=== PATIENT | male | born 1970 | race Caucasian/White ===

== ENCOUNTER 2018-11-20 22:34 | Emergency (ER) | payer BC ==
[2018-11-20] MEDS ORDERED: Lidocaine 2% Viscous Solution 15 ML Cup PO ONE (22:59)
[2018-11-20] MEDS ORDERED: Benzocaine 20% Topical Spray UD MUCMEM ONE (22:59)
--- NOTE | 2018-11-20 23:05 | EDM.PDOC ---
ED HPI GENERAL MEDICAL PROBLEM - General Chief Complaint: General Stated Complaint: PAIN ON RIGHT SIDE OF JAW Time Seen by Provider: 11/20/18 22:38 Source of Information: Reports: Patient History Limitations: Reports: No Limitations - History of Present Illness INITIAL COMMENTS - FREE TEXT/NARRATIVE: HISTORY AND PHYSICAL: History of present illness: Patient is a 48-year-old male who presents to the ED today for concern of upper and lower gum line pain 1 day. Patient states the symptoms started this afternoon and this evening he feels like there is a throbbing sensation in his gums. Patient states he has bad teeth and has had to have several teeth pulled in the past. Patient states he took ibuprofen with mild relief of symptoms. Patient denies any swelling or difficulties eating. Patient denies any other symptoms or concerns. Patient denies fever, chills, chest pain, shortness of breath, or cough. Denies headache, neck stiff ness, change in vision, syncope, or near syncope. Denies nausea, vomiting, abdominal pain, diarrhea, constipation, or dysuria. Has not noted any blood in urine or stool. Patient has been eating and drinking appropriately. Review of systems: As per history of present illness and below otherwise all systems reviewed and negative. Past medical history: As per history of present illness and as reviewed below otherwise noncontributory. Surgical history: As per history of present illness and as reviewed below otherwise noncontributory. Social history: See social history for further information Family history: As per history of present illness and as reviewed below otherwise noncontributory. Physical exam: General: Patient is alert, oriented, and in no acute distress. Patient sitting comfortably on exam table. HEENT: Atraumatic, normocephalic, pupils equal and reactive bilaterally, negative for conjunctival pallor or scleral icterus, mucous membranes moist, TMs normal bilaterally, throat clear, neck supple, nontender, trachea midline. No drooling or trismus noted. No meningeal signs. No hot potato voice noted. The gumline adjacent to tooth #2 is moderately edematous and erythematous with pain / recreation of patients symptoms with palpation. Generalized poor dentition. Lungs: Clear to auscultation, breath sounds equal bilaterally, chest nontender. Heart: S1S2, regular rate and rhythm without overt murmur Abdomen: Soft, nondistended, nontender. Negative for masses or hepatosplenomegaly. Negative for costovertebral tenderness. Pelvis: Stable nontender. Genitourinary: Deferred. Rectal: Deferred. Skin: Intact, warm, dry. No lesions or rashes noted. Extremities: Atraumatic, negative for cords or calf pain. Neurovascular unremarkable. Neuro: Awake, alert, oriented. Cranial nerves II through XII unremarkable. Cerebellum unremarkable. Motor and sensory unremarkable throughout. Exam nonfocal. Notes: Discussed the importance for follow-up with the dentist. Voices understanding and is agreeable to plan of care. Denies any further questions or concerns at this time. Diagnostics: None Therapeutics: Dental balls Prescription: Augmentin Impression: Gingivitis Poor dentition Plan: 1. Please take medication as prescribed. 2. Tylenol and/or ibuprofen as directed and as needed for pain management. 3. "Tooth Balls" have been given to you; apply along the gumline every 2-3 hours as needed. Do not swallow these; external use only. 4. Follow-up with a dentist for definitive care. Return to the ED as needed and as discussed. Definitive disposition and diagnosis as appropriate pending reevaluation and review of above. Right Oral/Mouth Pain Score (Numeric/FACES): 5 - Related Data Allergies Allergy/AdvReac Type Severity Reaction Status Date / Time No Known Allergies Allergy Verified 11/20/18 22:39 Home Meds: Home Meds Ibuprofen 800 mg PO ASDIRECTED 11/20/18 [History] Lisinopril 30 mg PO DAILY 11/20/18 [History] Rosuvastatin [Crestor] 10 mg PO DAILY 11/20/18 [History] Past Medical History Cardiovascular History: Reports: Prior Cardiac Arrest - Infectious Disease History Infectious Disease History: Reports: Chicken Pox, Mumps - Past Surgical History GI Surgical History: Reports: Appendectomy Musculoskeletal Surgical History: Reports: Other (See Below) Other Musculoskeletal Surgeries/Procedures:: left femur Social & Family History - Family History Family Medical History: Noncontributory - Tobacco Use Smoking Status *Q: Heavy Tobacco Smoker Years of Tobacco use: 40 Packs/Tins Daily: 0.5 - Caffeine Use Caffeine Use: Reports: Soda, Tea - Recreational Drug Use Recreational Drug Use: No ED ROS GENERAL - Review of Systems Review Of Systems: ROS reveals no pertinent complaints other than HPI. ED EXAM, GENERAL - Physical Exam Exam: See Below (See dictation) Course - Vital Signs Last Recorded V/S: Last Vital Signs Temp 96.9 F 11/20/18 22:41 Pulse 80 11/20/18 22:41 Resp 18 11/20/18 22:41 BP 138/85 11/20/18 22:41 Pulse Ox 90 L 11/20/18 22:41 - Orders/Labs/Meds Meds: Medications Discontinued Medications Generic Name Dose Route Start Last Admin Trade Name Chen PRN Reason Stop Dose Admin Benzocaine 2 each 11/20/18 22:59 Hurricaine One 20% MUCMEM 11/20/18 23:00 ONETIME ONE Lidocaine HCl 15 ml 11/20/18 22:59 Xylocaine 2% Viscous PO 11/20/18 23:00 ONETIME ONE Departure - Departure Time of Disposition: 23:04 Disposition: Home, Self-Care 01 Clinical Impression: Gingivitis, acute, Poor dentition - Discharge Information Referrals: PCP,None [Primary Care Provider] - Additional Instructions: The following information is given to patients seen in the emergency department who are being discharged to home. This information is to outline your options for follow-up care. We provide all patients seen in our emergency department with a follow-up referral. The need for follow-up, as well as the timing and circumstances, are variable depending upon the specifics of your emergency department visit. If you don't have a primary care physician on staff, we will provide you with a referral. We always advise you to contact your personal physician following an emergency department visit to inform them of the circumstance of the visit and for follow-up with them and/or the need for any referrals to a consulting specialist. The emergency department will also refer you to a specialist when appropriate. This referral assures that you have the opportunity for follow-up care with a specialist. All of these measure are taken in an effort to provide you with optimal care, which includes your follow-up. Under all circumstances we always encourage you to contact your private physician who remains a resource for coordinating your care. When calling for follow-up care, please make the office aware that this follow-up is from your recent emergency room visit. If for any reason you are refused follow-up, please contact the [facility] Emergency Department at and asked to speak to the emergency department charge nurse. [facility] [address] [place] [address] [facility] [address] [place] [address] 1. Please take medication as prescribed. 2. Tylenol and/or ibuprofen as directed and as needed for pain management. 3. "Tooth Balls" have been given to you; apply along the gumline every 2-3 hours as needed. Do not swallow these; external use only. 4. Follow-up with a dentist for definitive care. Return to the ED as needed and as discussed.
== END 2018-11-20 23:25 | disposition home or self-care (01) ==
LOC: MW.ED 22:34
DX: K05.00 Acute gingivitis, plaque induced (principal); F17.210 Nicotine dependence, cigarettes, uncomplicated
CPT/HCPCS: 99283; A9270

== ENCOUNTER 2019-08-02 17:07 | Emergency (ER) | payer BC ==
[2019-08-02] MEDS ORDERED: Lidocaine 2% Viscous Solution 15 ML Cup PO ONE (17:12)
[2019-08-02] MEDS ORDERED: Benzocaine 20% Topical Spray UD MUCMEM ONE (17:12)
--- NOTE | 2019-08-02 17:12 | EDM.PDOC ---
ED HPI GENERAL MEDICAL PROBLEM - General Chief Complaint: ENT Problem Stated Complaint: TOOTH ACHE Time Seen by Provider: 08/02/19 17:09 Source of Information: Reports: Patient History Limitations: Reports: No Limitations - History of Present Illness INITIAL COMMENTS - FREE TEXT/NARRATIVE: HISTORY AND PHYSICAL: History of present illness: Patient is a 49-year-old male who presents to the emergency room with complaints of right upper posterior dental pain and swelling. He states he has been having some intermittent dental problem over the past 1 year. States he attempted to make an appointment with the dentist but is not able to be seen for 2 to 3 weeks. He has been taking Tylenol and ibuprofen without much relief. Last year he was seen in the emergency department for similar problem and states "they gave me amoxicillin and it improved within 24 hours". Patient denies any fever, chills, headache, change in vision, syncope or near syncope. Denies any chest pain, back pain, shortness of breath or cough. Denies any GI or symptoms. Patient has been eating and drinking appropriately. Review of systems: As per history of present illness and below otherwise all systems reviewed and negative. Past medical history: As per history of present illness and as reviewed below otherwise noncontributory. Surgical history: As per history of present illness and as reviewed below otherwise noncontributory. Social history: See social history for further information Family history: As per history of present illness and as reviewed below otherwise noncontribut ory. Physical exam: General: Well-developed and well-nourished 49-year-old male. Alert and oriented. Nontoxic-appearing and in no acute distress. HEENT: Atraumatic, normocephalic, pupils equal and reactive bilaterally, negative for conjunctival pallor or scleral icterus, mucous membranes moist, TMs normal bilaterally, throat clear, multiple dental caries are noted, he does have some redness/fullness and tenderness to the right upper posterior molar. Neck supple, nontender, trachea midline. No drooling or trismus noted. No meningeal signs. No hot potato voice noted. Lungs: Clear to auscultation, breath sounds equal bilaterally, chest nontender. Heart: S1S2, regular rate and rhythm without overt murmur Abdomen: Soft, nondistended, nontender. Negative for masses or hepatosplenomegaly. Negative for costovertebral tenderness. Pelvis: Stable nontender. Genitourinary: Deferred. Rectal: Deferred. Skin: Intact, warm, dry. No lesions or rashes noted. Extremities: Atraumatic, moves all extremities per self without difficulty or deficits, negative for cords or calf pain. Neurovascular unremarkable. Neuro: Awake, alert, oriented. Cranial nerves II through XII unremarkable. Cerebellum unremarkable. Motor and sensory unremarkable throughout. Exam nonfocal. Notes: The need for follow-up was discussed with patient. Medication and supportive care measures were reviewed and discussed. Voices understanding and is agreeable to plan of care. Denies any further questions or concerns at this time. Diagnostics: None Therapeutics: Dental balls Prescription: Augmentin, Tramadol (#15) Impression: Dental Abscess Plan: 1. Please take the antibiotic as prescribed. 2. Tylenol and/or ibuprofen as needed for pain management. "Tooth Balls" have been given to you; apply along the gumline every 2-3 hours as needed. Do not swallow these; external use only. 3. Follow-up with a dentist for definitive care. Return to the ED as needed and as discussed. Definitive disposition and diagnosis as appropriate pending reevaluation and review of above. dental Pain Score (Numeric/FACES): 6 - Related Data Allergies Allergy/AdvReac Type Severity Reaction Status Date / Time No Known Allergies Allergy Verified 08/02/19 17:15 Home Meds: Home Meds Ibuprofen 800 mg PO ASDIRECTED 11/20/18 [History] Lisinopril 30 mg PO DAILY 11/20/18 [History] Rosuvastatin [Crestor] 10 mg PO DAILY 11/20/18 [History] Amoxicillin/Clavulanate K [Augmentin 875-125 MG] 1 tab PO BID 10 Days #20 tablet 08/02/19 [Rx] traMADol [Ultram] 50 mg PO Q4H PRN #15 tab 08/02/19 [Rx] Past Medical History Cardiovascular History: Reports: Prior Cardiac Arrest - Infectious Disease History Infectious Disease History: Reports: Chicken Pox, Mumps - Past Surgical History GI Surgical History: Reports: Appendectomy Musculoskeletal Surgical History: Reports: Other (See Below) Other Musculoskeletal Surgeries/Procedures:: left femur Social & Family History - Family History Family Medical History: Noncontributory - Caffeine Use Caffeine Use: Reports: Soda, Tea ED ROS ENT - Review of Systems Review Of Systems: Comprehensive ROS is negative, except as noted in HPI. ED EXAM, ENT - Physical Exam Exam: See Below (See dictation) Course - Vital Signs Last Recorded V/S: Last Vital Signs Temp 97.5 F 08/02/19 17:15 Pulse 73 08/02/19 17:15 Resp 17 08/02/19 17:15 BP 134/88 08/02/19 17:15 Pulse Ox 93 L 08/02/19 17:15 - Orders/Labs/Meds Meds: Medications Discontinued Medications Generic Name Dose Route Start Last Admin Trade Name Freq PRN Reason Stop Dose Admin Benzocaine 2 each 08/02/19 17:12 08/02/19 17:24 Hurricaine One 20% MUCMEM 08/02/19 17:13 2 each ONETIME ONE Administration Lidocaine HCl 15 ml 08/02/19 17:12 08/02/19 17:24 Xylocaine 2% Viscous PO 08/02/19 17:13 15 ml ONETIME ONE Administration Departure - Departure Time of Disposition: 17:31 Disposition: Home, Self-Care 01 Clinical Impression: Dental abscess - Discharge Information Prescriptions: Amoxicillin/Clavulanate K [Augmentin 875-125 MG] 1 tab PO BID 10 Days #20 tablet traMADol [Ultram] 50 mg PO Q4H PRN #15 tab PRN Reason: Pain Instructions: Dental Abscess, [id number] Referrals: Eulalia CHILDERS [Primary Care Provider] - Forms: ED Department Discharge Additional Instructions: The following information is given to patients seen in the emergency department who are being discharged to home. This information is to outline your options for follow-up care. We provide all patients seen in our emergency department with a follow-up referral. The need for follow-up, as well as the timing and circumstances, are variable depending upon the specifics of your emergency department visit. If you don't have a primary care physician on staff, we will provide you with a referral. We always advise you to contact your personal physician following an emergency department visit to inform them of the circumstance of the visit and for follow-up with them and/or the need for any referrals to a consulting specialist. The emergency department will also refer you to a specialist when appropriate. This referral assures that you have the opportunity for follow-up care with a specialist. All of these measure are taken in an effort to provide you with optimal care, which includes your follow-up. Under all circumstances we always encourage you to contact your private physician who remains a resource for coordinating your care. When calling for follow-up care, please make the office aware that this follow-up is from your recent emergency room visit. If for any reason you are refused follow-up, please contact the [facility] Emergency Department at and asked to speak to the emergency department charge nurse. [facility] [address] [place] [id number] [facility] [address] [place] [id number] 1. Please take the antibiotic as prescribed. 2. Tylenol and/or ibuprofen as needed for pain management. "Tooth Balls" have been given to you; apply along the gumline every 2-3 hours as needed. Do not swallow these; external use only. 3. Follow-up with a dentist for definitive care. Return to the ED as needed and as discussed. Sepsis Event Note (ED) - Focused Exam Vital Signs: Vital Signs Temp Pulse Resp BP Pulse Ox 08/02/19 17:15 97.5 F 73 17 134/88 93 L
== END 2019-08-02 17:45 | disposition home or self-care (01) ==
LOC: MW.ED 17:07
DX: K04.7 Periapical abscess without sinus (principal); K02.9 Dental caries, unspecified; Z79.899 Other long term (current) drug therapy
CPT/HCPCS: 99282; A9270

== ENCOUNTER 2019-09-29 10:24 | Observation (INO) | payer BC ==
[2019-09-29] MEDS ORDERED: Sodium Chloride 0.9% 2.5 ML Syringe FLUSH PRN (10:26)
[2019-09-29] MEDS ORDERED: Sodium Chloride 0.9% 10 ML Syringe FLUSH PRN (10:26)
--- NOTE | 2019-09-29 10:33 | EDM.PDOC ---
ED HPI GENERAL MEDICAL PROBLEM - General Chief Complaint: Chest Pain Stated Complaint: SOB Time Seen by Provider: 09/29/19 10:25 Source of Information: Reports: Patient, Old Records History Limitations: Reports: No Limitations - History of Present Illness INITIAL COMMENTS - FREE TEXT/NARRATIVE: 49-year-old male with a past medical history of hypertension presenting with complaints of epigastric pressure and black stools. Patient states that approximately 5 nights ago, he began developing a sensation of pressure in the epigastrium radiating up into the substernal region. He states that it is difficult to breathe due to the sensation of pressure but he does not feel winded or breathless. He also developed black-colored solid stools around the same timeframe. He was concerned about persistent symptoms so he came to the ED. He denies any history of coronary artery disease, GI bleed, or pulmonary embolism. Denies any hematemesis, coffee-ground emesis, hematochezia, black tarry stools, lower extremity edema, weight gain, PND. 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 Patient denies history of venous thromboembolism, lower extremity pain or swelling, hemoptysis, recent surgery or immobilization or long travel, history of active malignancy, or hormonal medication/product usage. ROS: A 10-point review of systems was negative, except as noted in the HPI (or in the ROS section of this note). Past medical history: Reviewed, no additional pertinent history. Surgical history: Reviewed in system, no additional pertinent history. Social history: Reviewed in system, no additional pertinent history. Family history: Reviewed in system, no additional pertinent history. PHYSICAL EXAM Vital signs reviewed. Nursing notes reviewed. Constitutional: Awake, alert, non-distressed. Head: Normocephalic, atraumatic. Eyes: EOMI, conjunctiva normal, no discharge, no scleral icterus. Ears, Nose, Throat: External ears and nose normal, moist oral mucosa. Cardiovascular: 2+ radial pulses bilaterally, capillary refill less than 2 seconds. Pulmonary: normal work of breathing, no accessory muscle use. Abdomen/GI: Obese, soft, nontender, nondistended, no guarding or rigidity, no masses. : Normal external examination of the anus, guaiac testing negative, no gross blood. Musculoskeletal: No deformities. Integumentary: Appropriate color for ethnicity, warm, dry, no pallor or jaundice, no rash. Neurologic: Alert, answering questions appropriately, normal speech, no facial droop, moving all extremities well. ethylbenzene converter helper 2-12 intact, 5/5 strength to bilateral upper extremities, no pronator drift. Psychiatric: Appropriate mood and affect, normal thought process. epigastric Pain Score (Numeric/FACES): 5 - Related Data Allergies Allergy/AdvReac Type Severity Reaction Status Date / Time No Known Allergies Allergy Verified 09/29/19 10:27 Home Meds: Home Meds Lisinopril 30 mg PO DAILY 11/20/18 [History] Past Medical History Cardiovascular History: Reports: Prior Cardiac Arrest - Infectious Disease History Infectious Disease History: Reports: Chicken Pox, Mumps - Past Surgical History GI Surgical History: Reports: Appendectomy Musculoskeletal Surgical History: Reports: Other (See Below) Other Musculoskeletal Surgeries/Procedures:: left femur Social & Family History - Family History Family Medical History: Noncontributory - Caffeine Use Caffeine Use: Reports: Soda, Tea ED ROS GENERAL - Review of Systems Review Of Systems: See Below ED EXAM, GENERAL - Physical Exam Exam: See Below EKG INTERPRETATION EKG Interpretation Comments: 12-Lead ECG Interpretation Acquired: 10:28 AM Rhythm: Sinus rhythm Rate: 79 bpm [place]: Left axis deviation Intervals: Normal Ectopy: Incomplete right bundle branch block Ischemic Changes: None apparent RV Strain: No obvious RV strain pattern. ST Segments/T-Waves: Large appearing T waves in leads II, aVF (nondiagnostic). Course - Vital Signs Text/Narrative:: Patient hemodynamically stable, afebrile, well-appearing, looks nontoxic. Differential diagnosis includes but is not limited to: Peptic ulcer disease, gastric varices, malignancy, hemorrhoids, colitis, pancreatitis, acute hepatitis, biliary colic, gallstones, acute coronary syndrome, pulmonary embolism, congestive heart failure, esophageal rupture, pneumonia, gastritis, reflux, thoracic aortic dissection, and many others Initially hypertensive, blood pressure normalized on repeat vital sign checks. Mild resting hypoxia with room air saturations 90 to 94%. CBC shows normal cell lines. Normal INR and APTT. D-dimer is elevated 0.84. Troponin is negative. Lipase is within normal limits. Mild hypokalemia at 3.4. Bilirubin elevated at 2.7, AST 414, ALT 583. Twelve-lead EKG shows no acute ischemia. 11:23 AM: Given hypoxia with elevated d-dimer, will pursue CT pulmonary angiogram study. Patient's sensation of epigastric pressure somewhat improved after a GI cocktail. No blood note on LESLY. Guaiac negative. No evidence of a GI bleed. 12:45 PM: Pain improved after GI cocktail. Remains hypoxic while awake and requires nasal cannula oxygen. The radiology software is down so we are not able to review the CT images at this point, we are waiting for radiologist to review the images. 2:24 PM: CT pulmonary angiogram was suboptimal and the vasculature was not adequately opacified. The lung parenchyma looks normal. Hepatic steatosis was noted. Multiple gallstones were seen but no evidence of acute biliary inflammation or dilatation. The patient is persistently hypoxic and requiring nasal cannula oxygen to maintain normal oxygen saturations although he is not complaining of feeling breathless. His lungs are clear. Given ongoing hypoxia and need for supplemental oxygen, he will need to be admitted to the hospital on observation status. I did order a DVT ultrasound [place] which was negative. He will likely need an echocardiogram. I spoke with the accepting hospitalist Dr. Mendoza who agrees to admit to observation/telemetry status. HEART Score for Major Cardiac Events RESULT SUMMARY: 3 points Low Score (0-3 points) Risk of MACE of 0.9-1.7%. INPUTS: History > 0 = Slightly suspicious EKG > 0 = Normal Age > 1 = 45-64 Risk factors > 2 = ?3 risk factors or history of atherosclerotic disease Initial troponin > 0 = ?normal limit Wells' Criteria for Pulmonary Embolism RESULT SUMMARY: 3.0 points Moderate risk group: 16.2% chance of PE in an ED population. Another study assigned scores ? 4 as PE Unlikely and had a 3% incidence of PE. INPUTS: Clinical signs and symptoms of DVT > 0 = No PE is #1 diagnosis OR equally likely > 3 = Yes Heart rate > 100 > 0 = No Immobilization at least 3 days OR surgery in the previous 4 weeks > 0 = No Previous, objectively diagnosed PE or DVT > 0 = No Hemoptysis > 0 = No Malignancy w/ treatment within 6 months or palliative > 0 = No Last Recorded V/S: Last Vital Signs Temp 35.6 C L 09/29/19 10:27 Pulse 72 09/29/19 14:12 Resp 16 09/29/19 14:12 BP 126/78 09/29/19 14:12 Pulse Ox 93 L 09/29/19 14:12 - Orders/Labs/Meds Orders: Active Orders 24 hr Category Date Time Status Admission Status [Patient Status] [ADT] Stat ADT 09/29/19 14:30 Active Cardiac Monitoring [RC] . DIRECTED Care 09/29/19 10:26 Active EKG 12 Lead [EKG Documentation Completion] [RC] STAT Care 09/29/19 11:39 Active EKG Documentation Completion [RC] STAT Care 09/29/19 10:26 Active Pulse Oximetry [RC] ASDIRECTED Care 09/29/19 10:26 Active Abdomen Ltd [US] Urgent Exams 09/29/19 15:36 Ordered CORONAVIRUS COVID-19 RAPID [MOLEC] Stat Lab 09/29/19 14:55 Received GLYCOSYLATED HEMOGLOBIN,HGBA1C [CHEM] Stat Lab 09/29/19 15:50 Ordered LIPID PANEL [CHEM] Stat Lab 09/29/19 15:50 Ordered TROPONIN I [CHEM] Stat Lab 09/29/19 15:03 Received TSH [CHEM] Stat Lab 09/29/19 15:50 Ordered Sodium Chloride 0.9% [Saline Flush] Med 09/29/19 10:26 Active 10 ml FLUSH ASDIRECTED PRN Sodium Chloride 0.9% [Saline Flush] Med 09/29/19 10:26 Active 2.5 ml FLUSH ASDIRECTED PRN Saline Lock Insert [OM.PC] Stat Oth 09/29/19 10:26 Ordered Medication Orders Sodium Chloride (Saline Flush) 10 ml FLUSH ASDIRECTED PRN PRN Reason: Keep Vein Open Last Admin: 09/29/19 11:03 Dose: 10 ml Documented by: YAKELIN Sodium Chloride (Saline Flush) 2.5 ml FLUSH ASDIRECTED PRN PRN Reason: Keep Vein Open Last Admin: 09/29/19 11:03 Dose: 2.5 ml Documented by: YAKELIN Labs: Laboratory Tests 09/29/19 09/29/19 09/29/19 Range/Units 10:36 10:36 10:36 WBC 5.37 (4.0-11.0) K/uL RBC 5.11 (4.50-5.90) M/uL Hgb 15.7 (13.0-17.0) g/dL Hct 46.2 (38.0-50.0) % MCV 90.4 (80.0-98.0) fL MCH 30.7 (27.0-32.0) pg MCHC 34.0 (31.0-37.0) g/dL RDW Std Deviation 42.1 (28.0-62.0) fl RDW Coeff of Jaswinder 13 (11.0-15.0) % Plt Count 147 L (150-400) K/uL MPV 11.40 (7.40-12.00) fL Neut % (Auto) 70.0 (48.0-80.0) % Lymph % (Auto) 20.7 (16.0-40.0) % [place] % (Auto) 7.8 (0.0-15.0) % Eos % (Auto) 0.9 (0.0-7.0) % Baso % (Auto) 0.6 (0.0-1.5) % Neut # (Auto) 3.8 (1.4-5.7) K/uL Lymph # (Auto) 1.1 (0.6-2.4) K/uL [place] # (Auto) 0.4 (0.0-0.8) K/uL Eos # (Auto) 0.1 (0.0-0.7) K/uL Baso # (Auto) 0.0 (0.0-0.1) K/uL Nucleated RBC % 0.0 /100WBC Nucleated RBCs # 0 K/uL INR 1.03 APTT 24.9 (18.6-31.3) SEC D-Dimer, Quantitative (0.0-0.50) mg/L FEU Sodium 139 (136-148) mmol/L Potassium 3.4 L (3.5-5.1) mmol/L Chloride 102 (98-107) mmol/L Carbon Dioxide 26.8 (21.0-32.0) mmol/L BUN 12 (7.0-18.0) mg/dL Creatinine 1.0 (0.8-1.3) mg/dL Est Cr Clr Drug Dosing 91.25 mL/min Estimated GFR (MDRD) > 60.0 ml/min Glucose 127 H (74-106) mg/dL Calcium 9.4 (8.5-10.1) mg/dL Total Bilirubin 2.7 H (0.2-1.0) mg/dL AST 414 H (15-37) IU/L ALT 583 H (14-63) IU/L Alkaline Phosphatase 105 (46-116) U/L Troponin I < 0.050 (0.000-0.056) ng/mL B-Natriuretic Peptide (<100) PG/ML Total Protein 7.6 (6.4-8.2) g/dL Albumin 3.8 (3.4-5.0) g/dL Globulin 3.8 (2.6-4.0) g/dL Albumin/Globulin Ratio 1.0 (0.9-1.6) Lipase (73-393) U/L Blood Type 09/29/19 09/29/19 09/29/19 Range/Units 10:36 10:36 10:36 WBC (4.0-11.0) K/uL RBC (4.50-5.90) M/uL Hgb (13.0-17.0) g/dL Hct (38.0-50.0) % MCV (80.0-98.0) fL MCH (27.0-32.0) pg MCHC (31.0-37.0) g/dL RDW Std Deviation (28.0-62.0) fl RDW Coeff of Jaswinder (11.0-15.0) % Plt Count (150-400) K/uL MPV (7.40-12.00) fL Neut % (Auto) (48.0-80.0) % Lymph % (Auto) (16.0-40.0) % [place] % (Auto) (0.0-15.0) % Eos % (Auto) (0.0-7.0) % Baso % (Auto) (0.0-1.5) % Neut # (Auto) (1.4-5.7) K/uL Lymph # (Auto) (0.6-2.4) K/uL [place] # (Auto) (0.0-0.8) K/uL Eos # (Auto) (0.0-0.7) K/uL Baso # (Auto) (0.0-0.1) K/uL Nucleated RBC % /100WBC Nucleated RBCs # K/uL INR APTT (18.6-31.3) SEC D-Dimer, Quantitative 0.84 H (0.0-0.50) mg/L FEU Sodium (136-148) mmol/L Potassium (3.5-5.1) mmol/L Chloride (98-107) mmol/L Carbon Dioxide (21.0-32.0) mmol/L BUN (7.0-18.0) mg/dL Creatinine (0.8-1.3) mg/dL Est Cr Clr Drug Dosing mL/min Estimated GFR (MDRD) ml/min Glucose (74-106) mg/dL Calcium (8.5-10.1) mg/dL Total Bilirubin (0.2-1.0) mg/dL AST (15-37) IU/L ALT (14-63) IU/L Alkaline Phosphatase (46-116) U/L Troponin I (0.000-0.056) ng/mL B-Natriuretic Peptide 6 (<100) PG/ML Total Protein (6.4-8.2) g/dL Albumin (3.4-5.0) g/dL Globulin (2.6-4.0) g/dL Albumin/Globulin Ratio (0.9-1.6) Lipase (73-393) U/L Blood Type AB POSITIVE 09/29/19 Range/Units 10:36 WBC (4.0-11.0) K/uL RBC (4.50-5.90) M/uL Hgb (13.0-17.0) g/dL Hct (38.0-50.0) % MCV (80.0-98.0) fL MCH (27.0-32.0) pg MCHC (31.0-37.0) g/dL RDW Std Deviation (28.0-62.0) fl RDW Coeff of Jaswinder (11.0-15.0) % Plt Count (150-400) K/uL MPV (7.40-12.00) fL Neut % (Auto) (48.0-80.0) % Lymph % (Auto) (16.0-40.0) % [place] % (Auto) (0.0-15.0) % Eos % (Auto) (0.0-7.0) % Baso % (Auto) (0.0-1.5) % Neut # (Auto) (1.4-5.7) K/uL Lymph # (Auto) (0.6-2.4) K/uL [place] # (Auto) (0.0-0.8) K/uL Eos # (Auto) (0.0-0.7) K/uL Baso # (Auto) (0.0-0.1) K/uL Nucleated RBC % /100WBC Nucleated RBCs # K/uL INR APTT (18.6-31.3) SEC D-Dimer, Quantitative (0.0-0.50) mg/L FEU Sodium (136-148) mmol/L Potassium (3.5-5.1) mmol/L Chloride (98-107) mmol/L Carbon Dioxide (21.0-32.0) mmol/L BUN (7.0-18.0) mg/dL Creatinine (0.8-1.3) mg/dL Est Cr Clr Drug Dosing mL/min Estimated GFR (MDRD) ml/min Glucose (74-106) mg/dL Calcium (8.5-10.1) mg/dL Total Bilirubin (0.2-1.0) mg/dL AST (15-37) IU/L ALT (14-63) IU/L Alkaline Phosphatase (46-116) U/L Troponin I (0.000-0.056) ng/mL B-Natriuretic Peptide (<100) PG/ML Total Protein (6.4-8.2) g/dL Albumin (3.4-5.0) g/dL Globulin (2.6-4.0) g/dL Albumin/Globulin Ratio (0.9-1.6) Lipase 241 (73-393) U/L Blood Type Meds: Medications Generic Name Dose Route Start Last Admin Trade Name Freq PRN Reason Stop Dose Admin Sodium Chloride 10 ml 09/29/19 10:26 09/29/19 11:03 Saline Flush FLUSH 10 ml ASDIRECTED PRN Administration Keep Vein Open Sodium Chloride 2.5 ml 09/29/19 10:26 09/29/19 11:03 Saline Flush FLUSH 2.5 ml ASDIRECTED PRN Administration Keep Vein Open Discontinued Medications Generic Name Dose Route Start Last Admin Trade Name Freq PRN Reason Stop Dose Admin Al Hydroxide/Mg Hydroxide 15 0 ml 09/29/19 10:49 09/29/19 11:02 ml/ Lidocaine HCl 5 ml PO 09/29/19 10:50 20 each ONETIME ONE Administration Departure - Departure Time of Disposition: 14:30 Disposition: Refer to Observation Condition: Good Clinical Impression: Hypoxia, Elevated liver function tests Referrals: PCP,None [Primary Care Provider] - Forms: ED Department Discharge Sepsis Event Note (ED) - Evaluation Sepsis Screening Result: No Definite Risk - Focused Exam Vital Signs: Vital Signs Temp Pulse Resp BP Pulse Ox 09/29/19 14:12 72 16 126/78 93 L 09/29/19 13:10 69 16 119/74 93 L 09/29/19 12:15 67 21 H 126/81 93 L 09/29/19 11:08 71 16 158/89 H 92 L 09/29/19 10:27 35.6 C L 79 19 159/80 H 94 L - My Orders Last 24 Hours: My Active Orders 09/29/19 10:26 Cardiac Monitoring [RC] . DIRECTED EKG Documentation Completion [RC] STAT Pulse Oximetry [RC] ASDIRECTED Sodium Chloride 0.9% [Saline Flush] 10 ml FLUSH ASDIRECTED PRN Sodium Chloride 0.9% [Saline Flush] 2.5 ml FLUSH ASDIRECTED PRN Saline Lock Insert [OM.PC] Stat 09/29/19 11:39 EKG 12 Lead [EKG Documentation Completion] [RC] STAT 09/29/19 14:30 Admission Status [Patient Status] [ADT] Stat 09/29/19 14:55 CORONAVIRUS COVID-19 RAPID [MOLEC] Stat - Assessment/Plan Last 24 Hours: My Active Orders 09/29/19 10:26 Cardiac Monitoring [RC] . DIRECTED EKG Documentation Completion [RC] STAT Pulse Oximetry [RC] ASDIRECTED Sodium Chloride 0.9% [Saline Flush] 10 ml FLUSH ASDIRECTED PRN Sodium Chloride 0.9% [Saline Flush] 2.5 ml FLUSH ASDIRECTED PRN Saline Lock Insert [OM.PC] Stat 09/29/19 11:39 EKG 12 Lead [EKG Documentation Completion] [RC] STAT 09/29/19 14:30 Admission Status [Patient Status] [ADT] Stat 09/29/19 14:55 CORONAVIRUS COVID-19 RAPID [MOLEC] Stat
[2019-09-29] MEDS ORDERED: Alum Hydrox/Mag Hydrox/Simeth 15 ML, Lidocaine 2% 5 ML PO ONE ×2 (10:49)
[2019-09-29 11:10] LABS: BLOOD UREA NITROGEN,BUN 12 mg/dL (7.0-18.0); CARBON DIOXIDE,CO2 26.8 mmol/L (21.0-32.0); CHLORIDE,CL 102 mmol/L (98-107); GLUCOSE RANDOM 127 mg/dL (74-106); POTASSIUM,K 3.4 mmol/L (3.5-5.1); SODIUM,NA 139 mmol/L (136-148)
--- NOTE | 2019-09-29 11:42 | CR ---
Chest: 2 views of the chest were obtained. Comparison: No prior chest imaging. Heart size and mediastinum are normal. Lungs are clear with no acute appearing parenchymal change. Bony structures are grossly intact. Impression: 1. Nothing acute is seen on 2 view chest x-ray. Diagnostic code #1 This report was dictated in MDT
--- NOTE | 2019-09-29 13:20 | CT ---
INDICATION: Chest pain. Elevated D-dimer. TECHNIQUE: CT chest PE was acquired with 100 cc Isovue 370 IV contrast. COMPARISON: None. FINDINGS: Heart and vasculature: Contrast opacification of the pulmonary arterial tree is suboptimal. No sign of large or central pulmonary embolism. Moderate dilatation of the left ventricle. Heart size otherwise normal. Great vessels are normal in caliber. Lungs and pleural: No suspicious nodules or infiltrates. No pleural effusions, pleural thickening, or pneumothorax. Lymph nodes/mediastinum: No mediastinal, hilar, or axillary adenopathy. Thyroid gland is normal. Chest wall: No masses. Upper abdomen: Cholelithiasis present. There is a patent steatosis. No other significant finding. Bones: Unremarkable for age. IMPRESSION: No sign of large or central pulmonary embolism. Small to medium size pulmonary arteries are not adequately assessed on this exam. Lungs are clear. No other specific finding to explain chest pain. Please note that all CT scans at this facility use dose modulation, iterative reconstruction, and/or weight-based dosing when appropriate to reduce radiation dose to as low as reasonably achievable. Dictated by Alexey Wray MD @ Sep 29 2019 1:12PM Signed by Dr. Alexey Wray @ Sep 29 2019 1:19PM
--- NOTE | 2019-09-29 14:21 | CT ---
INDICATION: Chest pain. Black stools. TECHNIQUE: CT abdomen and pelvis angio acquired with 100 cc Isovue 370 IV contrast. COMPARISON: None. FINDINGS: Lower chest: Unremarkable. Liver: Diffuse fatty infiltration. Otherwise unremarkable. Gallbladder and bile ducts: Multiple relatively small stones present. Gallbladder is mostly decompressed. No sign of acute inflammation. No biliary dilatation. Pancreas: Unremarkable. No mass or inflammation. Spleen: Unremarkable. Normal in size. No masses. Adrenal glands: Unremarkable. No nodules. Kidneys: Simple appearing exophytic cyst off the posterior cortex of the left kidney. Kidneys otherwise normal. GI tract: Minimal distal colonic diverticulosis. GI tract otherwise normal in caliber and appearance. Appendix is not visualized. Vasculature: Abdominal aorta is normal in caliber and appearance. Mesenteric arteries are patent. Lymph nodes: No lymphadenopathy. Omentum/Peritoneum/Abdominal Wall: Mild panniculitis in the central mesentery is of doubtful significance. No fluid collection and no free air. Pelvis: Unremarkable. Bones: There is hardware pinning of the left femoral neck. Otherwise unremarkable. IMPRESSION: 1. No acute or specific finding to explain pain or black stools. There is minimal distal colonic diverticulosis. GI tract is otherwise normal. 2. Cholelithiasis. 3. No other significant finding. Please note that all CT scans at this facility use dose modulation, iterative reconstruction, and/or weight-based dosing when appropriate to reduce radiation dose to as low as reasonably achievable. Dictated by Alexey Wray MD @ Sep 29 2019 2:13PM Signed by Dr. Alexey Wray @ Sep 29 2019 2:20PM
--- NOTE | 2019-09-29 15:46 | PCM.HP.2 ---
H&P History of Present Illness - General Date of Service: 09/29/19 Admit Problem/Dx: Admission Diagnosis/Problem Admission Diagnosis/Problem Hypoxia Source of Information: Patient History Limitations: Reports: No Limitations - History of Present Illness Initial Comments - Free Text/Narative: This 49 year old male with pmh of HTN, obesity, and hx of a cardiac arrest kp-operatively presented to the ED today with concerns of epigastric pain and black stools. He reports he ate some questionable deer meat on Friday and then didn't feel good after. He felt fullness, bloating and epigastric pain. He took some Pepto Bismal on Friday which helped somewhat, but the pressure in his epigastric region remained. On Friday he had a black colored stool and became worried. He denies overt blood in his stools. He reports he felt bloated and like a tight belt was around his waist. He reports he then had another black stool on Friday as well. He felt he should be evaluate. He reports he has had some shortness of breath, but it is more related to not being able to take a deep breath due to the pain, bot necessarily breathlessness. He denies fevers or chills. No sharp chest pain or palpitations. No lower abdominal pain. No diarrhea. No urinary concerns. He reports he takes Ibuprofen frequently to help with aches and pains. he denies heavy alcohol use. He was recently in [place] for the [employer] and drank only 5 total beers the entire time he was there, 4 days. He reports chewing tobacco use, 1-2 tins every couple days. He denies recreational drug use. He reports he has a no known family history of CAD, his father is diabetic and obese and his mother of cancer. In the ED CBC WNL, D dimer elevated 0.84, K+ 3.4, Glucose 127, troponin negative. Bili 2.7 AST 414, ALT 583, lipase 241. CXR negative. CTA chest was suboptimal for subsegmental PE, but large PE ruled out. No consolidation. CT abd/pelvis revealed cholelithiasis without distended gallbladder or inflammation. He was given GI cocktail which helped calm epigastric pain. Hemoccult in ED negative. He was noted to have sat 90-94% on RA, without respiratory distress. Doppler bilaterally negative for DVT. Second troponin negative. CIVD negative. He will be admitted for ACS rule out and epigastric pain PCP Dr Magana epigastric Pain Score (Numeric/FACES): 5 - Related Data Allergies/Adverse Reactions: Allergies Allergy/AdvReac Type Severity Reaction Status Date / Time No Known Allergies Allergy Verified 09/29/19 10:27 Home Medications: Home Meds Lisinopril 30 mg PO DAILY 11/20/18 [History] Past Medical History HEENT History: Reports: None Cardiovascular History: Reports: Hypertension, Prior Cardiac Arrest (kp- operatively, reports anesthesia felt it was his excessive weight.). Denies: ME Respiratory History: Reports: None. Denies: COPD, PE, Sleep Apnea, SOB Gastrointestinal History: Reports: None. Denies: GERD Genitourinary History: Reports: None. Denies: Chronic Renal Insuffiency Musculoskeletal History: Reports: None Neurological History: Reports: None. Denies: CVA, TIA Psychiatric History: Reports: None Endocrine/Metabolic History: Reports: Obesity/BMI 30+ Hematologic History: Reports: None Immunologic History: Reports: None Oncologic (Cancer) History: Reports: None Dermatologic History: Reports: None - Infectious Disease History Infectious Disease History: Reports: Chicken Pox, Mumps - Past Surgical History GI Surgical History: Reports: Appendectomy Musculoskeletal Surgical History: Reports: Other (See Below) Other Musculoskeletal Surgeries/Procedures:: left femur Social & Family History - Family History Family Medical History: Noncontributory - Tobacco Use Smoking Status *Q: Never Smoker Tobacco Use Within Last Twelve Months: Smokeless Tobacco Packs/Tins Daily: 0.5 Second Hand Smoke Exposure: No - Caffeine Use Caffeine Use: Reports: Soda, Tea - Alcohol Use Alcohol Use History: No Alcohol Use Frequency: Rarely, Socially - Recreational Drug Use Recreational Drug Use: No - Living Situation & Occupation Occupation: Employed H&P Review of Systems - Review of Systems: Review Of Systems: See Below General: Reports: No Symptoms. Denies: Fever, Chills, Malaise HEENT: Reports: No Symptoms. Denies: Headaches, Post Nasal Drip, Sinus Congestion, Sore Throat Pulmonary: Reports: No Symptoms Cardiovascular: Reports: Chest Pain (epigastric pain). Denies: Dyspnea on Exertion, Edema, Lightheadedness Gastrointestinal: Reports: Abdominal Pain (epigastri and upper abdomen), Black Stool. Denies: Bloody Stool, Nausea, Vomiting Genitourinary: Reports: No Symptoms. Denies: Dysuria, Frequency, Burning Musculoskeletal: Reports: No Symptoms Skin: Reports: No Symptoms Psychiatric: Reports: No Symptoms Neurological: Reports: No Symptoms Hematologic/Lymphatic: Reports: No Symptoms Immunologic: Reports: No Symptoms Exam - Exam Exam: See Below - Vital Signs Vital Signs: Last Vital Signs Temp 96.0 F L 09/29/19 10:27 Pulse 72 09/29/19 14:12 Resp 16 09/29/19 14:12 BP 126/78 09/29/19 14:12 Pulse Ox 93 L 09/29/19 14:12 Weight: 144.8 kg - Exam General: Alert, Oriented, Cooperative HEENT: Conjunctiva Clear, Mucosa Moist & [place], Posterior Pharynx Clear Lungs: Clear to Auscultation, Normal Respiratory Effort Cardiovascular: Regular Rate, Regular Rhythm GI/Abdominal Exam: Normal Bowel Sounds, Soft, Non-Tender, Other (obese abdomen) Back Exam: Normal Inspection, Decreased Range of Motion Extremities: Normal Inspection, Normal Range of Motion, No Pedal Edema Neuro Extensive - Mental Status: Alert, Oriented x3 Neuro Extensive - Motor, Sensory, Reflexes: CN II-XII Intact, Normal Gait Psychiatric: Alert, Normal Affect, Normal Mood - Patient Data Lab Results Last 24 hrs: Laboratory Results - last 24 hr 09/29/19 09/29/19 09/29/19 Range/Units 10:36 10:36 10:36 WBC 5.37 (4.0-11.0) K/uL RBC 5.11 (4.50-5.90) M/uL Hgb 15.7 (13.0-17.0) g/dL Hct 46.2 (38.0-50.0) % MCV 90.4 (80.0-98.0) fL MCH 30.7 (27.0-32.0) pg MCHC 34.0 (31.0-37.0) g/dL RDW Std Deviation 42.1 (28.0-62.0) fl RDW Coeff of Jaswinder 13 (11.0-15.0) % Plt Count 147 L (150-400) K/uL MPV 11.40 (7.40-12.00) fL Neut % (Auto) 70.0 (48.0-80.0) % Lymph % (Auto) 20.7 (16.0-40.0) % [place] % (Auto) 7.8 (0.0-15.0) % Eos % (Auto) 0.9 (0.0-7.0) % Baso % (Auto) 0.6 (0.0-1.5) % Neut # (Auto) 3.8 (1.4-5.7) K/uL Lymph # (Auto) 1.1 (0.6-2.4) K/uL [place] # (Auto) 0.4 (0.0-0.8) K/uL Eos # (Auto) 0.1 (0.0-0.7) K/uL Baso # (Auto) 0.0 (0.0-0.1) K/uL Nucleated RBC % 0.0 /100WBC Nucleated RBCs # 0 K/uL INR 1.03 APTT 24.9 (18.6-31.3) SEC D-Dimer, Quantitative (0.0-0.50) mg/L FEU Sodium 139 (136-148) mmol/L Potassium 3.4 L (3.5-5.1) mmol/L Chloride 102 (98-107) mmol/L Carbon Dioxide 26.8 (21.0-32.0) mmol/L BUN 12 (7.0-18.0) mg/dL Creatinine 1.0 (0.8-1.3) mg/dL Est Cr Clr Drug Dosing 91.25 mL/min Estimated GFR (MDRD) > 60.0 ml/min Glucose 127 H (74-106) mg/dL Calcium 9.4 (8.5-10.1) mg/dL Total Bilirubin 2.7 H (0.2-1.0) mg/dL AST 414 H (15-37) IU/L ALT 583 H (14-63) IU/L Alkaline Phosphatase 105 (46-116) U/L Troponin I < 0.050 (0.000-0.056) ng/mL B-Natriuretic Peptide (<100) PG/ML Total Protein 7.6 (6.4-8.2) g/dL Albumin 3.8 (3.4-5.0) g/dL Globulin 3.8 (2.6-4.0) g/dL Albumin/Globulin Ratio 1.0 (0.9-1.6) Lipase (73-393) U/L Blood Type 09/29/19 09/29/19 09/29/19 Range/Units 10:36 10:36 10:36 WBC (4.0-11.0) K/uL RBC (4.50-5.90) M/uL Hgb (13.0-17.0) g/dL Hct (38.0-50.0) % MCV (80.0-98.0) fL MCH (27.0-32.0) pg MCHC (31.0-37.0) g/dL RDW Std Deviation (28.0-62.0) fl RDW Coeff of Jaswinder (11.0-15.0) % Plt Count (150-400) K/uL MPV (7.40-12.00) fL Neut % (Auto) (48.0-80.0) % Lymph % (Auto) (16.0-40.0) % [place] % (Auto) (0.0-15.0) % Eos % (Auto) (0.0-7.0) % Baso % (Auto) (0.0-1.5) % Neut # (Auto) (1.4-5.7) K/uL Lymph # (Auto) (0.6-2.4) K/uL [place] # (Auto) (0.0-0.8) K/uL Eos # (Auto) (0.0-0.7) K/uL Baso # (Auto) (0.0-0.1) K/uL Nucleated RBC % /100WBC Nucleated RBCs # K/uL INR APTT (18.6-31.3) SEC D-Dimer, Quantitative 0.84 H (0.0-0.50) mg/L FEU Sodium (136-148) mmol/L Potassium (3.5-5.1) mmol/L Chloride (98-107) mmol/L Carbon Dioxide (21.0-32.0) mmol/L BUN (7.0-18.0) mg/dL Creatinine (0.8-1.3) mg/dL Est Cr Clr Drug Dosing mL/min Estimated GFR (MDRD) ml/min Glucose (74-106) mg/dL Calcium (8.5-10.1) mg/dL Total Bilirubin (0.2-1.0) mg/dL AST (15-37) IU/L ALT (14-63) IU/L Alkaline Phosphatase (46-116) U/L Troponin I (0.000-0.056) ng/mL B-Natriuretic Peptide 6 (<100) PG/ML Total Protein (6.4-8.2) g/dL Albumin (3.4-5.0) g/dL Globulin (2.6-4.0) g/dL Albumin/Globulin Ratio (0.9-1.6) Lipase (73-393) U/L Blood Type AB POSITIVE 09/29/19 Range/Units 10:36 WBC (4.0-11.0) K/uL RBC (4.50-5.90) M/uL Hgb (13.0-17.0) g/dL Hct (38.0-50.0) % MCV (80.0-98.0) fL MCH (27.0-32.0) pg MCHC (31.0-37.0) g/dL RDW Std Deviation (28.0-62.0) fl RDW Coeff of Jaswinder (11.0-15.0) % Plt Count (150-400) K/uL MPV (7.40-12.00) fL Neut % (Auto) (48.0-80.0) % Lymph % (Auto) (16.0-40.0) % [place] % (Auto) (0.0-15.0) % Eos % (Auto) (0.0-7.0) % Baso % (Auto) (0.0-1.5) % Neut # (Auto) (1.4-5.7) K/uL Lymph # (Auto) (0.6-2.4) K/uL [place] # (Auto) (0.0-0.8) K/uL Eos # (Auto) (0.0-0.7) K/uL Baso # (Auto) (0.0-0.1) K/uL Nucleated RBC % /100WBC Nucleated RBCs # K/uL INR APTT (18.6-31.3) SEC D-Dimer, Quantitative (0.0-0.50) mg/L FEU Sodium (136-148) mmol/L Potassium (3.5-5.1) mmol/L Chloride (98-107) mmol/L Carbon Dioxide (21.0-32.0) mmol/L BUN (7.0-18.0) mg/dL Creatinine (0.8-1.3) mg/dL Est Cr Clr Drug Dosing mL/min Estimated GFR (MDRD) ml/min Glucose (74-106) mg/dL Calcium (8.5-10.1) mg/dL Total Bilirubin (0.2-1.0) mg/dL AST (15-37) IU/L ALT (14-63) IU/L Alkaline Phosphatase (46-116) U/L Troponin I (0.000-0.056) ng/mL B-Natriuretic Peptide (<100) PG/ML Total Protein (6.4-8.2) g/dL Albumin (3.4-5.0) g/dL Globulin (2.6-4.0) g/dL Albumin/Globulin Ratio (0.9-1.6) Lipase 241 (73-393) U/L Blood Type Result Diagrams: 09/29/19 10:36 09/29/19 10:36 Sepsis Event Note - Evaluation Sepsis Screening Result: No Definite Risk - Focused Exam Vital Signs: Vital Signs Temp Pulse Resp BP Pulse Ox 09/29/19 14:12 72 16 126/78 93 L 09/29/19 13:10 69 16 119/74 93 L 09/29/19 12:15 67 21 H 126/81 93 L 09/29/19 11:08 71 16 158/89 H 92 L 09/29/19 10:27 96.0 F L 79 19 159/80 H 94 L - Problem List (1) Chest pain, rule out acute myocardial infarction SNOMED Code(s): 92110739 ICD Code: R07.9 - CHEST PAIN, UNSPECIFIED Status: Acute Current Visit: Yes (2) Transaminitis SNOMED Code(s): 796962320, 170105669 ICD Code: R74.0 - NONSPEC ELEV OF LEVELS OF TRANSAMNS & LACTIC ACID DEHYDRGNSE Status: Acute Current Visit: Yes (3) Hyperbilirubinemia SNOMED Code(s): 19065137 ICD Code: E80.6 - OTHER DISORDERS OF BILIRUBIN METABOLISM Status: Acute Current Visit: Yes (4) Epigastric pain SNOMED Code(s): 16951891 ICD Code: R10.13 - EPIGASTRIC PAIN Status: Acute Current Visit: Yes (5) Obesity SNOMED Code(s): 193784458, 451276559 ICD Code: E66.9 - OBESITY, UNSPECIFIED Status: Chronic Current Visit: Yes (6) HTN (hypertension) SNOMED Code(s): 64837880 ICD Code: I10 - ESSENTIAL (PRIMARY) HYPERTENSION Status: Chronic Current Visit: Yes (7) Hx of cardiac arrest SNOMED Code(s): 565007905 ICD Code: Z86.74 - PERSONAL HISTORY OF SUDDEN CARDIAC ARREST Status: Chronic Current Visit: Yes Problem List Initiated/Reviewed/Updated: Yes Orders Last 24hrs: Active Orders 24 hr Category Date Time Status Admission Status [Patient Status] [ADT] Stat ADT 09/29/19 14:30 Active Cardiac Monitoring [RC] . DIRECTED Care 09/29/19 10:26 Active EKG 12 Lead [EKG Documentation Completion] [RC] STAT Care 09/29/19 11:39 Active EKG Documentation Completion [RC] STAT Care 09/29/19 10:26 Active Pulse Oximetry [RC] ASDIRECTED Care 09/29/19 10:26 Active Abdomen Ltd [US] Urgent Exams 09/29/19 15:36 Ordered Venous Doppler Lwr Ext Bi [US] Stat Exams 09/29/19 14:09 Ordered CORONAVIRUS COVID-19 PCR PHL Stat Lab 09/29/19 14:43 Ordered TROPONIN I [CHEM] Stat Lab 09/29/19 15:03 Received Sodium Chloride 0.9% [Saline Flush] Med 09/29/19 10:26 Active 10 ml FLUSH ASDIRECTED PRN Sodium Chloride 0.9% [Saline Flush] Med 09/29/19 10:26 Active 2.5 ml FLUSH ASDIRECTED PRN Saline Lock Insert [OM.PC] Stat Oth 09/29/19 10:26 Ordered Medication Orders Sodium Chloride (Saline Flush) 10 ml FLUSH ASDIRECTED PRN PRN Reason: Keep Vein Open Last Admin: 09/29/19 11:03 Dose: 10 ml Documented by: YAKELIN Sodium Chloride (Saline Flush) 2.5 ml FLUSH ASDIRECTED PRN PRN Reason: Keep Vein Open Last Admin: 09/29/19 11:03 Dose: 2.5 ml Documented by: [id number] Assessment/Plan Comment:: This 49 year old male admitted with chest pain R/O ACS and epigastric pain 1. Chest pain - Sounds more GI related - Will trend troponins and monitor on Telemetry - Obtain lipid panel, A1c and TSH - Counseled on weight reduction - Arrange outpatient stress test - Consider sleep study for hypoxia - ECHO ordered. 2. Epigastric pain - Transaminitis and hyperbilirubinemia noted - RUQ US ordered - May need further work up as outpatient with [facility] - Lipase normal - CL diet for now - Protonix BID - Obtain stool studies especially for H pylori 3. HTN: - Monitor, continue Lisinopril VTE prophylaxis: SCDs Dispo: 1-2 days - Mortality Measure Prognosis:: Good
--- NOTE | 2019-09-29 15:51 | US ---
Bilateral lower extremity deep venous ultrasound: Duplex and color Doppler evaluation was obtained of the right and left common femoral, superficial femoral, popliteal, posterior tibial and peroneal veins. Comparison: No prior venous imaging. Findings: Normal compression and augmentation is seen. Impression: 1. No evidence of deep venous thrombosis within the right or left lower extremities. Diagnostic code #1 This report was dictated in MDT
[2019-09-29] MEDS ORDERED: Acetaminophen 325 MG Tab PO PRN (16:11)
[2019-09-29] MEDS ORDERED: Ondansetron 4 MG/2 ML SDV IVPUSH PRN (16:11)
[2019-09-29] MEDS ORDERED: Pantoprazole 40 MG Vial IV SCH (16:30)
[2019-09-29] MEDS ORDERED: Iopamidol 755 MG/ML 500 ML Multipack Bottle IVPUSH STA (18:01)
[2019-09-29] MEDS: Pantoprazole 40 MG in Sodium Chloride 0.9% 10 ML IV SCH ×2 (18:03→20:31)
[2019-09-29 21:12] LABS: HEMOGLOBIN A1C 5.7 % (4.5-6.2)
[2019-09-30 03:25] LABS: BLOOD UREA NITROGEN,BUN 8 mg/dL (7.0-18.0); CARBON DIOXIDE,CO2 27.1 mmol/L (21.0-32.0); CHLORIDE,CL 104 mmol/L (98-107); GLUCOSE RANDOM 101 mg/dL (74-106); POTASSIUM,K 3.4 mmol/L (3.5-5.1); SODIUM,NA 141 mmol/L (136-148)
[2019-09-30] MEDS ORDERED: Lisinopril 10 MG Tab PO SCH (09:00)
[2019-09-30] MEDS: Pantoprazole 40 MG in Sodium Chloride 0.9% 10 ML IV SCH (10:14)
--- NOTE | 2019-09-30 10:15 | US ---
Limited abdominal ultrasound: Multiple real-time images were obtained of the upper right abdomen. Comparison: No prior abdominal ultrasound, prior CT abdomen and pelvis exam of 09/29/19. Liver is echogenic most likely representing fatty infiltration. Gallstones are noted. Gallstones are located within the gallbladder neck. No biliary duct dilatation or gallbladder wall thickening is seen. Right kidney shows no hydronephrosis or mass and has a length of 15.3 cm. Pancreas is mostly obscured by bowel gas. Impression: 1. Probable fatty infiltration within the liver. 2. Gall stones within the gallbladder neck. No gallbladder wall thickening or biliary duct dilatation. 3. Obscured pancreas by bowel gas. Diagnostic code #3 This report was dictated in MDT
[2019-09-30 10:30] LABS: BILIRUBIN INDIRECT 0.8
--- NOTE | 2019-09-30 11:29 | PCM.DCSUM1 ---
Discharge Summary - Hospital Course Brief History: This 49 year old male with pmh of HTN, obesity, and hx of a cardiac arrest kp-operatively presented to the ED today with concerns of epigastric pain and black stools. He reports he ate some questionable deer meat on Friday and then didn't feel good after. He felt fullness, bloating and epigastric pain. He took some Pepto Bismal on Friday which helped somewhat, but the pressure in his epigastric region remained. On Friday he had a black colored stool and became worried. He denies overt blood in his stools. He reports he felt bloated and like a tight belt was around his waist. He reports he then had another black stool on Friday as well. He felt he should be evaluate. He reports he has had some shortness of breath, but it is more related to not being able to take a deep breath due to the pain, bot necessarily breathlessness. He denies fevers or chills. No sharp chest pain or palpitations. No lower abdominal pain. No diarrhea. No urinary concerns. He reports he takes Ibuprofen frequently to help with aches and pains. he denies heavy alcohol use. He was recently in [place] for the bike [employer] and drank only 5 total beers the entire time he was there, 4 days. He reports chewing tobacco use, 1-2 tins every couple days. He denies recreational drug use. He reports he has a no known family history of CAD, his father is diabetic and obese and his mother of cancer. In the ED CBC WNL, D dimer elevated 0.84, K+ 3.4, Glucose 127, troponin negative. Bili 2.7 AST 414, ALT 583, lipase 241. CXR negative. CTA chest was suboptimal for subsegmental PE, but large PE ruled out. No consolidation. CT abd/pelvis revealed cholelithiasis without distended gallbladder or inflammation. He was given GI cocktail which helped calm epigastric pain. Hemoccult in ED negative. He was noted to have sat 90-94% on RA, without respiratory distress. Doppler bilaterally negative for DVT. Second troponin negative. CIVD negative. He will be admitted for ACS rule out and epigastric pain. PCP Dr Magana Diagnosis: Stroke: No - Discharge Data Discharge Date: 09/30/19 Discharge Disposition: Home, Self-Care 01 Condition: Stable - Referral to Home Health Primary Care Physician: PCP None - Discharge Diagnosis/Problem(s) (1) Chest pain, rule out acute myocardial infarction SNOMED Code(s): 36764220 ICD Code: R07.9 - CHEST PAIN, UNSPECIFIED Status: Acute Current Visit: Yes (2) Transaminitis SNOMED Code(s): 713329130, 875627988 ICD Code: R74.0 - NONSPEC ELEV OF LEVELS OF TRANSAMNS & LACTIC ACID DEHYDRG NSE Status: Acute Current Visit: Yes (3) Hyperbilirubinemia SNOMED Code(s): 20630857 ICD Code: E80.6 - OTHER DISORDERS OF BILIRUBIN METABOLISM Status: Acute Current Visit: Yes (4) Epigastric pain SNOMED Code(s): 59304241 ICD Code: R10.13 - EPIGASTRIC PAIN Status: Acute Current Visit: Yes (5) Obesity SNOMED Code(s): 464196996, 133577080 ICD Code: E66.9 - OBESITY, UNSPECIFIED Status: Chronic Current Visit: Yes (6) HTN (hypertension) SNOMED Code(s): 24434633 ICD Code: I10 - ESSENTIAL (PRIMARY) HYPERTENSION Status: Chronic Current Visit: Yes (7) Hx of cardiac arrest SNOMED Code(s): 777449348 ICD Code: Z86.74 - PERSONAL HISTORY OF SUDDEN CARDIAC ARREST Status: Chronic Current Visit: Yes (8) Cholelithiasis SNOMED Code(s): 556822445 ICD Code: K80.20 - CALCULUS OF GALLBLADDER W/O CHOLECYSTITIS W/O OBSTRUCTION Status: Acute Current Visit: Yes Qualifiers: Cholelithiasis location: gallbladder Cholecystitis presence: without cholecystitis Biliary obstruction: without biliary obstruction Qualified Code(s): K80.20 - Calculus of gallbladder without cholecystitis without obstruction - Patient Summary/Data Hospital Course: Admitting Diagnoses: Epigastric pain Atypical Chest pain Discharge Diagnoses: Epigastric pain Atypical Chest pain Cholelithiasis without cholecystitis Lesly was admitted secondary to epigastric pain with black stools. Hemoccult returned negative. H pylori testing is pending. RUQ US obtained, which showed gallstones in the gallbladder neck, but no inflammation or pericholecystic fluid. Today abdominal pain is gone and no longer having the bloating. Transaminitis and hyperbilirubinemia improved today. He will be set up to see general surgeon as outpatient for evaluation for cholecystectomy. Pain likely related to cholelithiasis, but ACS was ruled out due to risk factors. Troponins negative. DM type 2 was ruled out, cholesterol elevated, but will hold on starting statin due transaminitis currently, encouraged BID fish oil. Encouraged DASH diet, with low fat for gallbladder now. He will be set up with stress test as outpatient due to chest pain. He will be discharged today with Protonix BID for 2 week. He is to stay away from NSAIDs and alcohol. Oxygen on RA today noted to be 92-94%. May be restrictive component due to obesity. Counseled on monitoring this. May need outpatient sleep study to further evaluated. ECHO pending on discharge. He is to return to the ED or clinic if concern should arise. - Patient Instructions Diet: Heart Healthy Diet (Low fat) Activity: As Tolerated, No Strenuous Activities Showering/Bathing: May Shower Notify Provider of: Fever, Increased Pain, Swelling and Redness, Drainage, Nausea and/or Vomiting - Discharge Plan *PRESCRIPTION DRUG MONITORING PROGRAM REVIEWED*: Not Applicable *COPY OF PRESCRIPTION DRUG MONITORING REPORT IN PATIENT KATTY: Not Applicable Prescriptions/Med Rec: Aspirin 81 mg PO DAILY #1 tab.chew Fish Oil/Dermott-3 Fatty Acids [Fish Oil 1,000 MG] 1 each PO BID #60 cap Pantoprazole Sodium [Protonix] 40 mg PO BID #30 tablet. Home Medications: Home Meds Lisinopril 30 mg PO DAILY 11/20/18 [History] Aspirin 81 mg PO DAILY #1 tab.chew 09/30/19 [Rx] Fish Oil/Dermott-3 Fatty Acids [Fish Oil 1,000 MG] 1 each PO BID #60 cap 09/30/19 [Rx] Pantoprazole Sodium [Protonix] 40 mg PO BID #30 tablet. 09/30/19 [Rx] Oxygen Therapy Mode: Room Air Patient Handouts: Cholelithiasis, [id number]-[id number], Abdominal Pain, Adult, [id number]-hl-[id number], Hypertension, Adult, Onti-ik-Lzms, Gallbladder Eating Plan, Pantoprazole tablets, Aspirin, ASA oral tablets, Fish Oil, Dermott-3 Fatty Acids capsules (Rx) Referrals: Mandy Lopez DO [Resident] - 10/06/19 8:30 am (Please arrive 15 minutes early with insurance cards, identification and your own facemask. [facility] [address] [place] [address] ) Chente Hill MD [Physician] - 10/01/19 9:30 am - Discharge Summary/Plan Comment DC Time >30 min.: No - Patient Data Vitals - Most Recent: Last Vital Signs Temp 97.2 F 09/30/19 07:15 Pulse 60 09/30/19 07:15 Resp 20 09/30/19 07:15 BP 130/88 09/30/19 10:16 Pulse Ox 94 L 09/30/19 07:15 Weight - Most Recent: 140.75 kg I&O - Last 24 hours: Intake & Output 09/29/19 09/30/19 09/30/19 22:59 06:59 14:59 Intake Total 0 2209 Output Total 0 1275 Balance 0 934 Lab Results - Last 24 hrs: Laboratory Results - last 24 hr 09/29/19 09/29/19 09/29/19 Range/Units 10:36 14:55 15:03 WBC (4.0-11.0) K/uL RBC (4.50-5.90) M/uL Hgb (13.0-17.0) g/dL Hct (38.0-50.0) % MCV (80.0-98.0) fL MCH (27.0-32.0) pg MCHC (31.0-37.0) g/dL RDW Std Deviation (28.0-62.0) fl RDW Coeff of Jaswinder (11.0-15.0) % Plt Count (150-400) K/uL MPV (7.40-12.00) fL Neut % (Auto) (48.0-80.0) % Lymph % (Auto) (16.0-40.0) % [place] % (Auto) (0.0-15.0) % Eos % (Auto) (0.0-7.0) % Baso % (Auto) (0.0-1.5) % Neut # (Auto) (1.4-5.7) K/uL Lymph # (Auto) (0.6-2.4) K/uL [place] # (Auto) (0.0-0.8) K/uL Eos # (Auto) (0.0-0.7) K/uL Baso # (Auto) (0.0-0.1) K/uL Nucleated RBC % /100WBC Nucleated RBCs # K/uL Sodium (136-148) mmol/L Potassium (3.5-5.1) mmol/L Chloride (98-107) mmol/L Carbon Dioxide (21.0-32.0) mmol/L BUN (7.0-18.0) mg/dL Creatinine (0.8-1.3) mg/dL Est Cr Clr Drug Dosing mL/min Estimated GFR (MDRD) ml/min Glucose (74-106) mg/dL Hemoglobin A1c (4.5-6.2) % Calcium (8.5-10.1) mg/dL Total Bilirubin (0.2-1.0) mg/dL Direct Bilirubin (0.0-0.5) mg/dL Indirect Bilirubin AST (15-37) IU/L ALT (14-63) IU/L Alkaline Phosphatase (46-116) U/L Troponin I < 0.050 (0.000-0.056) ng/mL B-Natriuretic Peptide 6 (<100) PG/ML Total Protein (6.4-8.2) g/dL Albumin (3.4-5.0) g/dL Globulin (2.6-4.0) g/dL Albumin/Globulin Ratio (0.9-1.6) Triglycerides (0-200) mg/dL Cholesterol (50-200) mg/dL LDL Cholesterol, Calc (60-180) mg/dL VLDL Cholesterol (5-55) mg/dL HDL Cholesterol (40-60) mg/dL Cholesterol/HDL Ratio (3.3-6.0) TSH 3rd Generation (0.36-3.74) uIU/mL COVID-19 (BHAVESH) NEGATIVE (NEGATIVE) 09/29/19 09/29/19 09/29/19 Range/Units 15:03 20:57 20:57 WBC (4.0-11.0) K/uL RBC (4.50-5.90) M/uL Hgb (13.0-17.0) g/dL Hct (38.0-50.0) % MCV (80.0-98.0) fL MCH (27.0-32.0) pg MCHC (31.0-37.0) g/dL RDW Std Deviation (28.0-62.0) fl RDW Coeff of Jaswinder (11.0-15.0) % Plt Count (150-400) K/uL MPV (7.40-12.00) fL Neut % (Auto) (48.0-80.0) % Lymph % (Auto) (16.0-40.0) % [place] % (Auto) (0.0-15.0) % Eos % (Auto) (0.0-7.0) % Baso % (Auto) (0.0-1.5) % Neut # (Auto) (1.4-5.7) K/uL Lymph # (Auto) (0.6-2.4) K/uL [place] # (Auto) (0.0-0.8) K/uL Eos # (Auto) (0.0-0.7) K/uL Baso # (Auto) (0.0-0.1) K/uL Nucleated RBC % /100WBC Nucleated RBCs # K/uL Sodium (136-148) mmol/L Potassium (3.5-5.1) mmol/L Chloride (98-107) mmol/L Carbon Dioxide (21.0-32.0) mmol/L BUN (7.0-18.0) mg/dL Creatinine (0.8-1.3) mg/dL Est Cr Clr Drug Dosing mL/min Estimated GFR (MDRD) ml/min Glucose (74-106) mg/dL Hemoglobin A1c 5.7 (4.5-6.2) % Calcium (8.5-10.1) mg/dL Total Bilirubin (0.2-1.0) mg/dL Direct Bilirubin (0.0-0.5) mg/dL Indirect Bilirubin AST (15-37) IU/L ALT (14-63) IU/L Alkaline Phosphatase (46-116) U/L Troponin I < 0.050 (0.000-0.056) ng/mL B-Natriuretic Peptide (<100) PG/ML Total Protein (6.4-8.2) g/dL Albumin (3.4-5.0) g/dL Globulin (2.6-4.0) g/dL Albumin/Globulin Ratio (0.9-1.6) Triglycerides 184 (0-200) mg/dL Cholesterol 194 (50-200) mg/dL LDL Cholesterol, Calc 117 (60-180) mg/dL VLDL Cholesterol 36 (5-55) mg/dL HDL Cholesterol 40 (40-60) mg/dL Cholesterol/HDL Ratio 4.9 (3.3-6.0) TSH 3rd Generation 0.48 (0.36-3.74) uIU/mL COVID-19 (BHAVESH) (NEGATIVE) 09/30/19 09/30/19 09/30/19 Range/Units 02:55 02:55 02:55 WBC 5.93 (4.0-11.0) K/uL RBC 4.87 (4.50-5.90) M/uL Hgb 15.2 (13.0-17.0) g/dL Hct 44.6 (38.0-50.0) % MCV 91.6 (80.0-98.0) fL MCH 31.2 (27.0-32.0) pg MCHC 34.1 (31.0-37.0) g/dL RDW Std Deviation 44.0 (28.0-62.0) fl RDW Coeff of Jaswinder 13 (11.0-15.0) % Plt Count 143 L (150-400) K/uL MPV 11.20 (7.40-12.00) fL Neut % (Auto) 61.9 (48.0-80.0) % Lymph % (Auto) 28.3 (16.0-40.0) % [place] % (Auto) 7.6 (0.0-15.0) % Eos % (Auto) 1.7 (0.0-7.0) % Baso % (Auto) 0.5 (0.0-1.5) % Neut # (Auto) 3.7 (1.4-5.7) K/uL Lymph # (Auto) 1.7 (0.6-2.4) K/uL [place] # (Auto) 0.5 (0.0-0.8) K/uL Eos # (Auto) 0.1 (0.0-0.7) K/uL Baso # (Auto) 0.0 (0.0-0.1) K/uL Nucleated RBC % 0.0 /100WBC Nucleated RBCs # 0 K/uL Sodium 141 (136-148) mmol/L Potassium 3.4 L (3.5-5.1) mmol/L Chloride 104 (98-107) mmol/L Carbon Dioxide 27.1 (21.0-32.0) mmol/L BUN 8 (7.0-18.0) mg/dL Creatinine 0.9 (0.8-1.3) mg/dL Est Cr Clr Drug Dosing 101.39 mL/min Estimated GFR (MDRD) > 60.0 ml/min Glucose 101 (74-106) mg/dL Hemoglobin A1c (4.5-6.2) % Calcium 8.7 (8.5-10.1) mg/dL Total Bilirubin 1.1 H (0.2-1.0) mg/dL Direct Bilirubin 0.30 (0.0-0.5) mg/dL Indirect Bilirubin 0.80 AST 190 H (15-37) IU/L ALT 463 H (14-63) IU/L Alkaline Phosphatase 99 (46-116) U/L Troponin I < 0.050 (0.000-0.056) ng/mL B-Natriuretic Peptide (<100) PG/ML Total Protein 6.6 (6.4-8.2) g/dL Albumin 3.4 (3.4-5.0) g/dL Globulin 3.2 (2.6-4.0) g/dL Albumin/Globulin Ratio 1.1 (0.9-1.6) Triglycerides (0-200) mg/dL Cholesterol (50-200) mg/dL LDL Cholesterol, Calc (60-180) mg/dL VLDL Cholesterol (5-55) mg/dL HDL Cholesterol (40-60) mg/dL Cholesterol/HDL Ratio (3.3-6.0) TSH 3rd Generation (0.36-3.74) uIU/mL COVID-19 (BHAVESH) (NEGATIVE) [facility] Results - Last 24 hrs: Microbiology 09/30/19 06:15 Stool Occult Blood (QUEENIE) - Final Stool / Feces NEGATIVE OCCULT BLOOD REFERENCE RANGE: NEGATIVE Med Orders - Current: Current Medications Acetaminophen (Tylenol) 650 mg PO Q4H PRN PRN Reason: Pain (Mild 1-3)/fever Pantoprazole Sodium 40 mg/ (Sodium Chloride) 10 mls @ 200 mls/hr IV BID [facility] Last Admin: 09/30/19 10:14 Dose: 200 mls/hr Documented by: Lisinopril (Prinivil) 30 mg PO DAILY [facility] Last Admin: 09/30/19 10:16 Dose: 30 mg Documented by: Ondansetron HCl (Zofran) 4 mg IVPUSH Q4H PRN PRN Reason: Nausea Sodium Chloride (Saline Flush) 10 ml FLUSH ASDIRECTED PRN PRN Reason: Keep Vein Open Last Admin: 09/29/19 11:03 Dose: 10 ml Documented by: Sodium Chloride (Saline Flush) 2.5 ml FLUSH ASDIRECTED PRN PRN Reason: Keep Vein Open Last Admin: 09/29/19 11:03 Dose: 2.5 ml Documented by: Discontinued Medications Al Hydroxide/Mg Hydroxide 15 (ml/ Lidocaine HCl 5 ml) 0 ml PO ONETIME ONE Stop: 09/29/19 10:50 Last Admin: 09/29/19 11:02 Dose: 20 each Documented by: Iopamidol (Isovue Multipack-370 (76%)) 100 ml IVPUSH ONETIME STA Stop: 09/29/19 18:02 Last Admin: 09/29/19 18:03 Dose: 100 ml Documented by: - Exam Quality Assessment: Reports: DVT Prophylaxis. Denies: Supplemental Oxygen General: Reports: Alert, Oriented, Cooperative, No Acute Distress Lungs: Reports: Clear to Auscultation, Normal Respiratory Effort Cardiovascular: Reports: Regular Rate, Regular Rhythm GI/Abdominal Exam: Normal Bowel Sounds, Soft, Non-Tender, No Distention, No Mass, Other (obese abdomen) Back Exam: Reports: Normal Inspection, Full Range of Motion Extremities: Normal Inspection, Normal Range of Motion, Non-Tender Psy/Mental Status: Reports: Alert, Normal Affect, Normal Mood
--- NOTE | 2019-10-04 10:40 | ECHO ---
EXAM DATE: 09/29/19 PATIENT'S AGE: 49 The ECHO report has been scanned into [employer] and can be seen in this patient's EMR (Electronic Medical Record) under the REPORTS section. The report has also been scanned into PACS. [facility]
== END 2019-09-30 14:27 | disposition home or self-care (01) ==
LOC: MW.ED 10:24 → MW.MS 14:30
PROVIDERS: ADMIT Student in an Organized Health Care Education/Training Program; ATTEND Student in an Organized Health Care Education/Training Program
DX: R10.13 Epigastric pain (principal); R07.89 Other chest pain; K80.20 Calculus of gallbladder without cholecystitis without obstruction; R74.0 Nonspecific elevation of levels of transaminase and lactic acid dehydrogenase [LDH]; E80.6 Other disorders of bilirubin metabolism; R09.02 Hypoxemia; R79.89 Other specified abnormal findings of blood chemistry; I10 Essential (primary) hypertension; E66.9 Obesity, unspecified; Z86.74 Personal history of sudden cardiac arrest; Z79.82 Long term (current) use of aspirin; Z79.899 Other long term (current) drug therapy; Z20.828 Contact with and (suspected) exposure to other viral communicable diseases; Z68.41 Body mass index [BMI] 40.0-44.9, adult
CPT/HCPCS: 36415; 71046; 71275; 74174; 76705; 80048; 80053; 80061; 80074; 80076; 82272; 83036; 83690; 83880; 84443; 84484; 85025; 85379; 85610; 85730; 86900; 86901; 87338; 87635; 93005; 93306; 93970; 96374; 96376; 99285; A9270; C9113; G0378; J7050; Q9967; 99284; U0002